=== PATIENT | male | born 1995 | race African-American/Black ===

== ENCOUNTER 2023-05-12 16:26 | Emergency (ER) | payer OTHER, BC ==
[2023-05-12] MEDS: Ketorolac 30 MG/ML SDV IVPUSH ONE (16:37)
[2023-05-12 16:55] LABS: ALANINE AMINOTRANSFERASE,ALT 34 U/L (12-78); ALKALINE PHOSPHATASE 79 U/L (46-116); ASPARTATE AMNIOTRANSFERASE,AST 33 U/L (15-37); BILIRUBIN TOTAL 0.8 mg/dL (0.0-1.0); BLOOD UREA NITROGEN,BUN 11 mg/dL (7-18); CALCIUM 8.9 mg/dL (8.4-10.1); CARBON DIOXIDE,CO2 27 mmol/L (21-32); CHLORIDE,CL 105 mEq/L (98-106); GLUCOSE RANDOM 95 mg/dL (75-99); POTASSIUM,K 3.6 mEq/L (3.5-5.0); PROTEIN TOTAL,TP 7.4 g/dL (6.4-8.2); SODIUM,NA 141 mEq/L (136-145)
[2023-05-12] MEDS: Ondansetron 4 MG/2 ML SDV IVPUSH PRN (16:59)
[2023-05-12 17:10] LABS: ESTIMATED GFR 104 mL/min (>=60)
== END 2023-05-12 18:00 | disposition home or self-care (01) ==
LOC: CC.ED 16:26
DX: Z77.098 Contact with and (suspected) exposure to other hazardous, chiefly nonmedicinal, chemicals (principal)
CPT/HCPCS: 36415; 80053; 85025; 96374; 96375; 99284-25; J1885; J2405